=== PATIENT | male | born 1990 | race African-American/Black ===

== ENCOUNTER 2018-08-22 08:06 | Emergency (ER) | payer MEDICAID ==
[~2018-08-22] VITALS: Ht 180.3 cm; Wt 70.3 kg
[2018-08-22] MEDS ORDERED: METHIMAZOLE10 MG PO (08:29)
[2018-08-22] MEDS ORDERED: BACLOFEN10 MG ORAL (08:29)
[2018-08-22 08:30] VITALS: BP 115/75
--- NOTE | 2018-08-22 08:30 | NUR ---
ED Nurse Note: A/OX4. AMBULATED IN TO ER DUE TO RIGHT SHOULDER PAIN 02/14 X 1 WEEK. NO RECENT TRAUMA NOR INJURY. INCREASED PAIN WITH ROM.
[2018-08-22] MEDS ORDERED: IBUPROFEN600 MG ORAL (08:50)
[2018-08-22 08:55] VITALS: BP 115/75
--- NOTE | 2018-08-22 08:56 | NUR ---
ER Nurse Note: Pt seen, treated, medically cleared for discharge by ER MD. Discharge instructions and prescriptions given with repeat verbalzi ation by pt. Instructed pt to follow up with primary care physcian within one week. Pt a&ox4, VSS, no signs of distress. ID band removed. Pt left with all belongings, stable gait, via own transportation.
--- NOTE | 2018-08-22 10:04 | Emergency Room Report ---
History of Present Illness General Chief Complaint: Shoulder Injury Source: Patient Present Illness HPI 28-year-old male presents ED complaining of right shoulder pain times one week. Pain is throbbing, 8 out of 10, nonradiating. Worse with abduction. Denies any recent injury. Denies fevers or chills. Denies neck pain or chest pain or back pain. No other aggravating relieving factors. Denies any other associated symptoms Allergies: Coded Allergies: No Known Allergies (Unverified , 08/22/18) Patient History Past Medical History: none Past Surgical History: none Pertinent Family History: none Social History: Denies: smoking, alcohol use, drug use Immunizations: UTD Reviewed Nursing Documentation: PMH: Agreed; PSxH: Agreed Nursing Documentation-PMH Past Medical History: No History, Except For Review of Systems All Other Systems: negative except mentioned in HPI Physical Exam Vital Signs Date Time Temp Pulse Resp B/P (MAP) Pulse Ox O2 Delivery O2 Flow Rate FiO2 08/22/18 08:25 98.2 82 14 115/75 100 Room Air Sp02 EP Interpretation: reviewed, normal General Appearance: no apparent distress, alert, GCS 15, non-toxic Head: normocephalic Eyes: bilateral eye normal inspection, bilateral eye PERRL ENT: normal ENT inspection Neck: normal inspection Respiratory: normal inspection Cardiovascular #1: normal inspection Gastrointestinal: normal inspection Rectal: deferred Genitourinary: no CVA tenderness Musculoskeletal: back normal, gait/station normal, normal range of motion, tender - R shoulder, pain with abduction Neurologic: alert, oriented x3, responsive, motor strength/tone normal, sensory intact, speech normal Psychiatric: normal inspection Skin: normal inspection Lymphatic: normal inspection Medical Decision Making Diagnostic Impression: Primary Impression: Shoulder pain, acute Qualified Codes: M25.511 - Pain in right shoulder ER Course Hospital Course 28-year-old male presents to ED complaining of R shoulder pain no trauma Differential diagnoses include: Fracture, dislocation, sprain, contusion, bursitis Clinical course Patient placed on stretcher. After initial history, physical exam reveals a male in no acute distress. There is some tenderness to the right shoulder. Full range of motion noted passively. No crepitus or bruising. There is some pain with abduction. Consideration for rotator cuff injury Discussed findings with patient. Safe for discharge close outpatient follow- up. We'll provide orthopedic referrals. Recommend ice, elevation, NSAIDs for 7 -10 days. Patient understands plan Diagnosis - shoulder pain stable and discharged to home with prescription for Motrin. Followup with PMD. Return to ED if symptoms recur or worsen Last Vital Signs Date Time Temp Pulse Resp B/P (MAP) Pulse Ox O2 Delivery O2 Flow Rate FiO2 08/22/18 08:55 98.2 82 14 115/75 100 Room Air Status: improved Disposition: HOME, SELF-CARE Condition: Stable Scripts Ibuprofen* (MOTRIN*) 600 Mg Tablet 600 MG ORAL Q8H PRN for For Pain, #30 TAB 0 Refills Prov: Carlos Mcdowell MD 08/22/18 Referrals: [facility] Open 24 hour /7 days a week by Appointment Only [address] [facility] [address] [id number] Patient Instructions: Shoulder Pain Carlos Mcdowell MD Aug 22, 2018 10:04
== END 2018-08-22 09:00 | disposition home or self-care (01) ==
LOC: EMR 08:54
DX: M25.511 Pain in right shoulder (principal)
CPT/HCPCS: 99282